=== PATIENT | female | born 1950 | race Caucasian/White ===

== ENCOUNTER 2017-12-29 20:24 | Emergency (ER) | payer BC ==
--- NOTE | 2017-12-29 20:26 | ER Report ---
History and Physical Time Seen By MD: 20:26 HPI/ROS CHIEF COMPLAINT: chest tightness. HISTORY OF PRESENT ILLNESS: This is a 67 year old female. She was having some feelings of chest tightness for a few days. She feels like she cannot take a paulino p breath. Denies chest pain. No cough or fevers. Also feels that she is a little anxious. Describes some chronic insomnia as well which has been a little worse recently. Has some tingling in her toes bilaterally. No fevers or chills. Nothing makes the tight feeling worse or better. Has had some intermittent dizziness, lightheadedness. Allergies: Coded Allergies: No Known Drug Allergies (Unverified , 12/29/17) Reviewed Nurses Notes: Yes Constitutional Vital Sign - Last 24 Hours 12/29/17 12/29/17 12/29/17 12/29/17 20:24 20:26 20:27 20:30 Temp 98.5 Pulse ??? 86 Resp 22 B/P (MAP) 126/65 126/65 (85) 106/65 (79) Pulse Ox 97 O2 Delivery Non-Rebreather 12/29/17 12/29/17 12/29/17 12/29/17 20:38 20:40 20:40 20:45 Pulse 84 Resp 20 B/P (MAP) 101/58 (72) Pulse Ox 94 O2 Delivery Room Air O2 Flow Rate 4.0 12/29/17 12/29/17 12/29/17 12/29/17 20:54 21:00 21:11 21:15 Pulse 84 Resp 13 B/P (MAP) ???/??? (1665) 114/42 (66) 98/69 (79) Pulse Ox 95 12/29/17 12/29/17 12/29/17 12/29/17 21:24 21:30 21:45 21:54 Pulse 81 86 Resp 11 17 B/P (MAP) 110/60 (77) 110/68 (82) Pulse Ox 94 93 12/29/17 12/29/17 12/29/17 12/29/17 22:00 23:00 23:05 23:10 Pulse 79 82 87 Resp 9 10 17 B/P (MAP) 116/65 (82) 106/67 (80) Pulse Ox 93 91 92 10/24/18 12/29/17 12/29/17 12/29/17 23:15 23:20 23:25 23:30 Pulse 82 86 80 88 Resp 18 11 14 9 B/P (MAP) 112/59 (76) Pulse Ox 93 91 92 90 12/29/17 12/29/17 12/29/17 12/29/17 23:35 23:40 23:45 23:50 Pulse ??? 78 81 85 Resp 12 20 23 Pulse Ox 91 93 88 12/29/17 12/30/17 12/30/17 12/30/17 23:55 00:00 00:05 00:10 Pulse 83 84 83 87 Resp 11 10 11 22 B/P (MAP) 117/58 (77) Pulse Ox 88 86 87 91 12/30/17 12/30/17 12/30/17 12/30/17 00:15 00:20 00:25 00:30 Pulse 84 94 91 92 Resp 6 14 16 10 B/P (MAP) 110/55 (73) Pulse Ox 90 87 92 91 12/30/17 12/30/17 12/30/17 00:35 00:40 00:45 Pulse 97 89 Resp 30 12 17 Pulse Ox 89 92 Physical Exam General Appearance: The patient is alert. No acute distress. Eyes: Pupils are equal, round. No pallor, injection or icterus. ENT: Mucous membranes are moist. Normal oral mucosa. Posterior oropharynx is normal. Neck: Supple and non tender. Respiratory: Lungs are clear to auscultation. Cardiovascular: Regular rate and rhythm. No murmurs, gallops or rubs. Normal capillary refill. No edema. Gastrointestinal: Abdomen is soft and non tender. Nondistended. Normal active bowel sounds. Neurological: Alert and oriented x3. No focal neurologic deficits in the extremities. [ ] Skin: Warm and dry. No rashes. Musculoskeletal: Extremities are nontender. Full range of motion. No tenderness in palpation of the cervical, thoracic and lumbar spine. DIFFERENTIAL DIAGNOSIS: After history and physical exam, differential diagnosis was considered for chest tightness and shortness of breath including but not limited to myocardial ischemia, pulmonary embolus, anxiety, pleural inflammation and pulmonary infectious causes. Medical Decision Making Data Points Result Diagram: 12/29/17200912/29/172009 Laboratory Hematology Test 12/29/17 20:10 12/29/17 23:33 Red Blood Count 4.76 M/uL (4.17-5.56) Mean Corpuscular Volume 91.6 fL (80.0-96.0) Mean Corpuscular Hemoglobin 30.9 pg (26.0-33.0) Mean Corpuscular Hemoglobin Concent 33.8 g/dL (32.0-36.0) Red Cell Distribution Width 12.7 % (11.5-14.5) Mean Platelet Volume 7.5 fL (7.2-11.1) Neutrophils (%) (Auto) 50.6 % (39.4-72.5) Lymphocytes (%) (Auto) 40.9 % (17.6-49.6) Monocytes (%) (Auto) 5.9 % (4.1-12.4) Eosinophils (%) (Auto) 1.3 % (0.4-6.7) Basophils (%) (Auto) 1.3 % (0.3-1.4) Nucleated RBC Relative Count (auto) 0.0 /100WBC Neutrophils # (Auto) 4.1 K/uL (2.0-7.4) Lymphocytes # (Auto) 3.3 K/uL (1.3-3.6) Monocytes # (Auto) 0.5 K/uL (0.3-1.0) Eosinophils # (Auto) 0.1 K/uL (0.0-0.5) Basophils # (Auto) 0.1 K/uL (0.0-0.1) Nucleated RBC Absolute Count (auto) 0.00 K/uL D-Dimer Quantitative (PE/DVT) < 0.27 ug/ml (0-0.50) Sodium Level 138 mmol/L (137-145) Potassium Level 3.7 mmol/L (3.5-5.0) Chloride Level 100 mmol/L (98-107) Carbon Dioxide Level 27 mmol/L (22-31) Blood Urea Nitrogen 17 mg/dl (7-18) Creatinine 0.60 mg/dl (0.52-1.04) Glomerular Filtration Rate Calc > 60.0 Random Glucose 80 mg/dl (75-110) Calcium Level 9.6 mg/dl (8.4-10.2) Total Bilirubin 0.5 mg/dl (0.2-1.3) Aspartate Amino Transf (AST/SGOT) 31 U/L (0-35) Alanine Aminotransferase (ALT/SGPT) 31 U/L (0-56) Alkaline Phosphatase 57 U/L (0-126) Total Protein 7.1 g/dl (6.3-8.2) Albumin 4.4 g/dl (3.5-5.0) Troponin I < 0.012 ng/ml Chemistry Test 12/29/17 20:10 12/29/17 23:33 White Blood Count 8.1 k/uL (4.5-11.0) Red Blood Count 4.76 M/uL (4.17-5.56) Hemoglobin 14.7 g/dL (12.0-16.0) Hematocrit 43.6 % (34.0-47.0) Mean Corpuscular Volume 91.6 fL (80.0-96.0) Mean Corpuscular Hemoglobin 30.9 pg (26.0-33.0) Mean Corpuscular Hemoglobin Concent 33.8 g/dL (32.0-36.0) Red Cell Distribution Width 12.7 % (11.5-14.5) Platelet Count 317 K/uL (150-450) Mean Platelet Volume 7.5 fL (7.2-11.1) Neutrophils (%) (Auto) 50.6 % (39.4-72.5) Lymphocytes (%) (Auto) 40.9 % (17.6-49.6) Monocytes (%) (Auto) 5.9 % (4.1-12.4) Eosinophils (%) (Auto) 1.3 % (0.4-6.7) Basophils (%) (Auto) 1.3 % (0.3-1.4) Nucleated RBC Relative Count (auto) 0.0 /100WBC Neutrophils # (Auto) 4.1 K/uL (2.0-7.4) Lymphocytes # (Auto) 3.3 K/uL (1.3-3.6) Monocytes # (Auto) 0.5 K/uL (0.3-1.0) Eosinophils # (Auto) 0.1 K/uL (0.0-0.5) Basophils # (Auto) 0.1 K/uL (0.0-0.1) Nucleated RBC Absolute Count (auto) 0.00 K/uL D-Dimer Quantitative (PE/DVT) < 0.27 ug/ml (0-0.50) Glomerular Filtration Rate Calc > 60.0 Calcium Level 9.6 mg/dl (8.4-10.2) Total Bilirubin 0.5 mg/dl (0.2-1.3) Aspartate Amino Transf (AST/SGOT) 31 U/L (0-35) Alanine Aminotransferase (ALT/SGPT) 31 U/L (0-56) Alkaline Phosphatase 57 U/L (0-126) Total Protein 7.1 g/dl (6.3-8.2) Albumin 4.4 g/dl (3.5-5.0) Troponin I < 0.012 ng/ml Coagulation Test 12/29/17 20:10 D-Dimer Quantitative (PE/DVT) < 0.27 ug/ml EKG/Imaging EKG Interpretation 12 lead EKG: At 2034 hrs. Rhythm: normal sinus rhythm, rate 80 [place]: normal QRS: Low-voltage ST segments: normal 12 lead EKG: At 2341 hrs. Rhythm: normal sinus rhythm, 76 [place]: normal QRS: Low-voltage ST segments: normal Imaging INDICATION: Chest Pain. DATE: 12/29/2017 9:49 PM. TECHNIQUE: CHEST SINGLE AP COMPARISON: Chest radiograph December 04, 2008 FINDINGS: Heart size is normal. The lungs are mildly hyperinflated. No focal pneumonia. No effusion. No pneumothorax. IMPRESSION: Mild hyperinflation. No focal pneumonia. Report Dictated By: Ilya Izquierdo MD at 12/29/2017 9:49 PM ED Course/Re-evaluation Clinical Indication for ER IV: Hydration, IV Access ED Course Initial labs unremarkable. Troponin negative and EKG as noted above. DuoNeb treatment did not make a difference. Fletcher this could be partly anxiety related. Given Ativan 0.25mg IV, without much improvement. Repeat Troponin and EKG negative. Discharged to follow-up for further outpatient evaluation. Decision to Disposition Date: Dec 30, 2017 Decision to Disposition Time: 00:34 Depart Departure Latest Vital Signs Vital Signs Date Time Temp Pulse Resp B/P (MAP) Pulse Ox O2 Delivery O2 Flow Rate FiO2 12/30/17 00:45 17 12/30/17 00:40 89 92 12/30/17 00:30 110/55 (73) 12/29/17 20:40 Room Air 12/29/17 20:38 4.0 12/29/17 20:26 98.5 Impression: Primary Impression: Sensation of chest tightness Additional Impression: Dyspnea Condition: Improved Disposition: HOME OR SELF-CARE Referrals: GAURI ORTEGA (PCP) Patient Instructions: Dyspnea (ED) Additional Instructions: We did not find a dangerous cause of shortness of breath and chest tightness tonight. We recommend follow-up with your primary care provider to arrange further testing to be done as an outpatient Problem Qualifiers Additional Impression: Dyspnea Dyspnea type: other forms of dyspnea Qualified Codes: R06.09 - Other forms of dyspnea MAGGY HUNTER MD Dec 29, 2017 20:26
[2017-12-29] MEDS ORDERED: ASPIRIN 81 MG CHEW PO ONE (20:35)
[2017-12-29] MEDS ORDERED: ALBUTEROL/IPRATROPIUM 3 ML NEB NEB ONE (20:35)
[2017-12-29 20:45] LABS: PLATELET COUNT, AUTOMATED 317 K/uL (150-450)
--- NOTE | 2017-12-29 21:54 | RADIOLOGY IMAGING REPORT ---
FACILITY: [facility] [place] PATIENT NAME: Jazmin Jarrett : 1950 MR: [id number] V: [id number] EXAM DATE: ORDERING PHYSICIAN: MAGGY HUNTER TECHNOLOGIST: Location: [facility] Patient: Jazmin Jarrett : 1950 Visit/Account:[id number] Date of Sevice: 12/29/2017 INDICATION: Chest Pain. DATE: 12/29/2017 9:49 PM. TECHNIQUE: CHEST SINGLE AP COMPARISON: Chest radiograph December 04, 2008 FINDINGS: Heart size is normal. The lungs are mildly hyperinflated. No focal pneumonia. No effusio n. No pneumothorax. IMPRESSION: Mild hyperinflation. No focal pneumonia. Report Dictated By: Ilya Izquierdo MD at 12/29/2017 9:49 PM Report E-Signed By: Ilya Izquierdo MD at 12/29/2017 9:50 PM [id number]
[2017-12-29] MEDS ORDERED: LORazepam 2 MG/ML VIAL IVP ONE (22:10)
--- NOTE | 2017-12-29 22:35 | EKG ---
FACILITY: [facility] PATIENT NAME: SKYLA CATHERINE : [id number] MR: [id number] V: [id number] EXAM DATE: ORDERING PHYSICIAN: MAGGY HUNTER TECHNOLOGIST: LYDIA Test Reason : CP Blood Pressure : / mmHG Vent. Rate : 080 BPM Atrial Rate : 080 BPM P-R Int : 150 ms QRS Dur : 082 ms QT Int : 384 ms P-R-T Axes : 065 055 053 degrees QTc Int : 442 ms Sinus rhythm Possible biatrial enlargement Poor R wave progression anteriorly T wave inversions through anterior leads Low voltage QRS Abnormal ECG No previous ECGs available Confirmed by KAYY PATEL ([id number]) on 12/30/2017 5:43:30 AM Referred By: Confirmed By:KAYY PATEL
--- NOTE | 2017-12-29 23:47 | EKG ---
FACILITY: [facility] PATIENT NAME: SKYLA CATHERINE : [id number] MR: [id number] V: [id number] EXAM DATE: ORDERING PHYSICIAN: MAGGY HUNTER TECHNOLOGIST: LYDIA Test Reason : REPEAT EKG Blood Pressure : / mmHG Vent. Rate : 076 BPM Atrial Rate : 076 BPM P-R Int : 154 ms QRS Dur : 080 ms QT Int : 390 ms P-R-T Axes : 072 035 067 degrees QTc Int : 438 ms Sinus rhythm Possible biatrial enlargement Poor R wave progression anteriorly T wave inversions now in leads V1-V5 Low voltage QRS Abnormal ECG Confirmed by KAYY PATEL ([id number]) on 12/30/2017 5:45:53 AM Referred By: Confirmed By:KAYY PATEL
[2017-12-30 00:30] VITALS: BP 110/55
== END 2017-12-30 00:50 | disposition home or self-care (01) ==
LOC: ER 20:34
DX: R07.89 Other chest pain (principal); R06.09 Other forms of dyspnea
CPT/HCPCS: 71045; 84484; 85025; 85379; 93005; 94640; 96374; 99284; J2060; J7620; 82040; 82247; 82310; 82374; 82435; 82565; 82947; 84075; 84132; 84155; 84295; 84450; 84460; 84520

== ENCOUNTER → 2017-12-29 | Outpatient (CLI) | payer BC | LOC: AMB 20:10 | PROVIDERS: ATTEND Nurse Practitioner | DX: R06.82 Tachypnea, not elsewhere classified (principal); R07.9 Chest pain, unspecified; R20.0 Anesthesia of skin | CPT/HCPCS: A0425; A0427 ==